=== PATIENT | female | born 1990 | race Asian ===

== ENCOUNTER → 2016-11-05 | Outpatient (CLI) | payer BC, OTHER | LOC: FIMAGING 17:03 | PROVIDERS: ATTEND Advanced Practice Midwife | DX: O09.32 Supervision of pregnancy with insufficient antenatal care, second trimester (principal); Z3A.23 23 weeks gestation of pregnancy ==

== ENCOUNTER 2017-03-01 13:11 | Emergency (ER) | payer MEDICAID, OTHER ==
[2017-03-01 13:19] VITALS: BP 91/62; PULSE 83; RESP 16; TEMP 97.9; O2SAT 98
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
== END 2017-03-01 14:50 | disposition home or self-care (01) ==
DX: Z76.0 Encounter for issue of repeat prescription (principal)

== ENCOUNTER 2017-03-04 17:04 | Emergency (ER) | payer MEDICAID ==
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
[2017-03-04 18:53] VITALS: BP 109/66; PULSE 90; RESP 18; TEMP 98.6; O2SAT 94
== END 2017-03-04 18:54 | disposition home or self-care (01) ==
DX: R10.2 Pelvic and perineal pain (principal); G89.29 Other chronic pain; Z87.81 Personal history of (healed) traumatic fracture